=== PATIENT | female | born 1945 | race Caucasian/White ===

== ENCOUNTER 2016-06-28 12:34 | Emergency (ER) | payer OTHER ==
--- NOTE | 2016-06-28 12:59 | ED EKG INTERP ---
EKG Interpretation - EKG Time of EKG reading by physician:: 12:57 EKG Read and Signed by:: Roman Iverson EKG Interpretation (*Must complete 3 of following elements*): Abnormal Rate: 80 Rhythm: NSR QRS: other (left atrial enlargment) ST Wave: non-specific ST changes
[2016-06-28 13:19] LABS: MANUAL DIFF NEEDED? NO
[2016-06-28 13:25] LABS: BASO% 0.3 % (0.0-0.8); EOS# 0.15 X1000 (0.0-0.7); HEMATOCRIT 37.7 % (37.0-47.0); HEMOGLOBIN 12.8 g/dL (12.0-16.0); LYMPH# 0.93 X1000 (1.2-3.4); LYMPH% 12.7 % (20.5-51.1); MCH 32.5 PG (27-31); MCV 95.7 FL (81-99); MONO% 6.8 % (1.7-9.3); MPV 10.6 FL (7.4-10.4); NEUT% 78.2 % (42.2-75.2); PLT 224 X1000 (130-400); RBC 3.94 XMIL (4.2-5.4)
[2016-06-28 13:39] LABS: INR 0.92; PROTIME 9.4 Seconds (9.2-11.7); PTT 24.7 Seconds (22.0-36.0)
[2016-06-28 13:49] LABS: AGAP 13; ALBUMIN 3.5 g/dL (3.5-5.0); ALKALINE PHOSPHATASE 51 U/L (32-104); BUN 14 mg/dL (8-22); CALCIUM 8.8 mg/dL (8.8-10.2); CHLORIDE 100 mmol/L (98-107); CK PROFILE 129 U/L (24-173); COSMO 274; GOT 15 U/L (10-30); GPT 9 U/L (10-36); MAGNESIUM 1.7 mg/dL (1.5-2.7); POTASSIUM 4.1 mmol/L (3.5-5.1); SODIUM 135 mmol/L (136-145); TCO2 22 mmol/L (25-35); TOTAL BILIRUBIN 0.12 mg/dL (0.20-1.00); TOTAL PROTEIN 6.4 g/dL (6.3-8.3)
--- NOTE | 2016-06-28 14:20 | Diag Imaging Result Document ---
PROCEDURE NAME: CHEST-2 VIEWS - 06/28/2016 PA AND LATERAL RADIOGRAPH OF THE CHEST: COMPARISON: 03/20/2016. FINDINGS: There is evidence of prior granulomatous disease, stable. There is mild stable scarring at the lung apices. The lungs are grossly clear, otherwise. There is no definite pleural fluid collection. Cardiac silhouette and central vasculature are essentially unremarkable. There are stable CABG changes. IMPRESSION: Stable chest with no definite acute pathology.
--- NOTE | 2016-06-28 14:25 | EKG Report ---
Test Performed on : 06/28/2016 12:57:03 PM Test Reason : Chest Pain Blood Pressure : / mmHG Vent. Rate : 080 BPM Atrial Rate : 080 BPM P-R Int : 164 ms QRS Dur : 090 ms QT Int : 374 ms P-R-T Axes : 065 051 157 degrees QTc Int : 431 ms Normal sinus rhythm. Possible Left atrial enlargement ST & T wave abnormality, consider inferolateral ischemia Abnormal ECG When compared with ECG of 20-MAR-2016 17:14, No significant change was found Unconfirmed Result
--- NOTE | 2016-06-28 15:15 | PROVIDER DOCUMENTATION ---
HPI-Chest Pain - General Source: patient - History of Present Illness-CP Location: reports: other (L sided) Chest Pain Radiation: reports: no radiation Quality of Pain: reports: aching Severity in ED: mild Onset/Duration: just prior to arrival Timing: still present Context/Activities at Onset: reports: light activity Modifying Factors: worse with: other (talking causes pt to become more sob) Associated Symptoms: reports: shortness of breath. denies: nausea, vomiting Nitro Today/Relief: provided at home, no relief Aspirin Treatment Today: provided at home Prior Chest Pain/Cardiac Workup: reports: other (bypass in 2001) Similar Symptoms Previously?: No Recently Seen Here or By Another Healthcare Provider: No <Bisi Deal - Last Filed: 06/28/16 17:12> <Roman Iverson - Last Filed: 06/28/16 17:20> - General Chief Complaint: Chest Pain Stated Complaint: CP Time Seen by Provider: 06/28/16 15:01 Allergies/Adverse Reactions: Patient Allergies Allergy/AdvReac Type Severity Reaction Status Date / Time Sulfa (Sulfonamide Allergy Intermediate ITCHING Verified 05/11/13 16:57 Antibiotics) methocarbamol [From Robaxin] Allergy Mild ITCHING Verified 05/11/13 16:57 Penicillins Allergy Mild ITCHING Verified 05/11/13 16:57 Home Medications: Home Medication List Medication Instructions Recorded Confirmed Last Taken Type Metoprolol [Lopressor] 25 mg PO DAILY 05/11/13 05/11/13 05/10/13 History Multivitamins/Minerals [Centrum 1 each PO DAILY 05/11/13 05/11/13 Unknown History Silver] [place]-3 Fatty Acids [Fish Oil] 300 mg PO 05/11/13 05/11/13 Unknown History PRAVAstatin [Pravachol] 40 mg PO QHS 05/11/13 05/11/13 05/10/13 History Potassium Chloride [Klor-Con M20] 40 meq PO 05/11/13 05/11/13 05/10/13 History Vit B12/Pyridoxine/Thiamine [Pv 1 each PO 05/11/13 05/11/13 05/10/13 History Neuro Bettina Tablet] Vit C/Ascorbate Ca/Ascorb Sod 500 mg PO 05/11/13 05/11/13 05/10/13 History [Vitamin C 500 mg/15 ml Liquid] Vit D3-Vit K/Berberine/Hops 1 each PO 05/11/13 05/11/13 Unknown History [Ostera Tablet] Vit E Acetate/Gly/Dimeth/Water 400 ml TP 05/11/13 05/11/13 05/10/13 History [Eucerin Daily Replenishing Lot] Clopidogrel Bisulfate [Plavix] 75 mg PO DAILY 03/20/16 03/20/16 Unknown History Azithromycin 250 mg PO DAILY #6 tablet 06/28/16 Unknown Rx - History of Present Illness-CP Nature of Presenting Problem: 71 y/o F presents to ED cc of chest pain. Pt states she had left sided chest pain start around 1530pm yesterday and got worse over night waking pt up at 0400 this am and has had no relief from nitro or aspirin. Pt states the pain is constant. Pt is alert and oriented. Pt does report having some SOB when talking. Pt rates pain 8/10. Denies any edema/leg pain. (Bisi Deal) Review of Systems - Adult - REVIEW OF SYSTEMS - ADULT Constitutional: denies: chills, fever Ears, Nose, Mouth & Throat: denies: ear pain, throat pain Cardiovascular: reports: chest pain (left sided). denies: palpitations Respiratory: reports: shortness of breath. denies: cough (cough is still the same, denies any change) Gastrointestinal: denies: nausea, rectal bleeding, vomiting Genitourinary: denies: dysuria, discharge Musculoskeletal: denies: bone pain, back pain Neurological: denies: dizziness/vertigo, headache/migraines <Bisi Deal - Last Filed: 06/28/16 17:12> Past History - Adult - PAST MEDICAL HISTORY-ADULT Review of Records: reports: Old Records Reviewed, Nursing Assessment Review Major Childhood Illnesses: reports: denies history Cardiovascular: reports: CAD, heart valve problem (aortic stenosis , with valve replacement), hyperlipidemia Respiratory: reports: COPD Genitourinary: reports: kidney disease (renal stenosis) Endocrine/Immune: reports: Diabetes - PRIOR SURGERIES/PROCEDURES Surgical/Procedure History: reports: hysterectomy, orthopedic (extremity) ( arthoscopy), other (heart valve replacement(aortic), stent to renal artery) - IMMUNIZATION STATUS Childhood Immunizations: See Nurse Assessment Flu Vaccine: See Nurse Assessment - FAMILY HISTORY Family History: reviewed, not pertinent - SOCIAL HISTORY Smoking: greater than 1 pack/day Provider spent 3-5 mins advising pt. on dangers of tobacco.: Discussed manners to quit use, and f/u contacts for add'l counseling. Substance Use: denies <Bisi Deal - Last Filed: 06/28/16 17:12> Physical Exam-General - PHYSICAL EXAM-ADULT Initial Vital Signs Reviewed: Yes - CONSTITUTIONAL General Appearance: appears well, alert, no apparent distress - EYES Eyes: PERRL/EOMI, pink conjunctivae - HEAD, EARS, NOSE, MOUTH & THROAT HENMT: moist mucous membranes - NECK Neck: non-tender, full range of motion, supple - RESPIRATORY Respiratory: chest non-tender, lungs clear, normal breath sounds - CARDIOVASCULAR Cardiovascular: normal peripheral pulses, regular rate, rhythm, no edema - GASTROINTESTINAL (ABDOMEN) Abdominal Exam: normal bowel sounds, non tender, soft - MUSCULOSKELETAL Back Exam: normal inspection, other (chronic back pain) Extremity: normal range of motion, non-tender, normal gait, normal inspection, no pedal edema, no calf tenderness - SKIN Integumentary: normal color, normal turgor, warm/dry - NEUROLOGIC Neurologic: grossly normal, no motor/sensory deficits - PSYCHIATRIC Psych/Mental Status: normal mood/affect, normal thought content, normal thought process, oriented x 3 <Bisi Deal - Last Filed: 06/28/16 17:12> Progress - REASSESSMENT Reassessment #1 Time Reassessed: 16:35 Status: unchanged (pt denies taking lasix/ put still has pain on the L side with no relief.) - XRAY 1 XRAY: Bilateral XRAY Study: Chest Impression: Normal XRAY Interpretation: stable chest- Dr. aguirre (radiologist) - CT/MRI 1 CT Study: Angiogram Impression: Abnormal (NO PE. DARYL PNEUMIONIA. CHRONIC BRONCHITIS. CARDIOMEGALY) CT Results: SEE IMPRESSION- (radiologist) <Bisi Deal - Last Filed: 06/28/16 17:12> <Roman Iverson - Last Filed: 06/28/16 17:20> - PLAN OF CARE/RESULTS Progress/Plan/Lab Results: PLAN: LABS, CHEST XRAY PT AND PT FAMILY VERBALLY UNDERSTANDS PLAN OF CARE Laboratory Tests 06/28/16 06/28/16 06/28/16 13:00 13:00 13:00 WBC 7.35 RBC 3.94 L Hgb 12.8 Hct 37.7 MCV 95.7 MCH 32.5 H MCHC 34.0 RDW Std Deviation 13.6 Plt Count 224 MPV 10.6 H Immature Gran % (Auto) 0.0 Neut % (Auto) 78.2 H Lymph % (Auto) 12.7 L Williamson % (Auto) 6.8 Eos % (Auto) 2.0 Baso % (Auto) 0.3 Immature Gran # (Auto) 0.00 Neut # (Auto) 5.75 Lymph # (Auto) 0.93 L Williamson # (Auto) 0.50 Eos # (Auto) 0.15 Baso # (Auto) 0.02 PT INR PTT (Actin FS) D-Dimer 0.62 H Sodium 135 L Potassium 4.1 Chloride 100 Carbon Dioxide 22 L Anion Gap 13 BUN 14 Creatinine 0.6 Estimated GFR/1.73 m2 > 60 BUN/Creatinine Ratio 23 Glucose 157 H Calculated Osmolality 274 Calcium 8.8 Magnesium 1.7 Total Bilirubin 0.12 L AST 15 ALT 9 L Alkaline Phosphatase 51 Creatine Kinase 129 Troponin T Dqm-P-Vqhzmezottq Pept Total Protein 6.4 Albumin 3.5 Globulin 2.9 Albumin/Globulin Ratio 1.2 06/28/16 06/28/16 06/28/16 13:00 13:00 13:00 WBC RBC Hgb Hct MCV MCH MCHC RDW Std Deviation Plt Count MPV Immature Gran % (Auto) Neut % (Auto) Lymph % (Auto) Williamson % (Auto) Eos % (Auto) Baso % (Auto) Immature Gran # (Auto) Neut # (Auto) Lymph # (Auto) Williamson # (Auto) Eos # (Auto) Baso # (Auto) PT 9.4 INR 0.92 PTT (Actin FS) 24.7 D-Dimer Sodium Potassium Chloride Carbon Dioxide Anion Gap BUN Creatinine Estimated GFR/1.73 m2 BUN/Creatinine Ratio Glucose Calculated Osmolality Calcium Magnesium Total Bilirubin AST ALT Alkaline Phosphatase Creatine Kinase Troponin T < 0.010 Xtn-[id number]-Pzsklcrdmlu Pept 2679 H Total Protein Albumin Globulin Albumin/Globulin Ratio Orders Category Date Time Status ANGIOGRAM/PULMONARY ARTERIES [CT] Stat Exams 06/28/16 15:11 Taken CHEST-2 VIEWS [RAD] Stat Exams 06/28/16 12:43 Draft CBC WITH ELECTRONIC DIFF [HEME] Stat Lab 06/28/16 13:00 Completed CK PROFILE [SP CHEM] Stat Lab 06/28/16 13:00 Completed COMPREHENSIVE METABOLIC PANEL [CHEM] Stat Lab 06/28/16 13:00 Completed D-DIMER [CHEM] Stat Lab 06/28/16 13:00 Completed MAGNESIUM [CHEM] Stat Lab 06/28/16 13:00 Completed PRO B-NATRIURETIC PEPTIDE Stat Lab 06/28/16 13:00 Completed PROTIME WITH INR [COAG] Stat Lab 06/28/16 13:00 Completed PTT [COAG] Stat Lab 06/28/16 13:00 Completed TROPONIN T Stat Lab 06/28/16 13:00 Completed EKG [EKG] Stat Ther 06/28/16 12:43 Draft Vital Signs - 24 hr 06/28/16 06/28/16 12:39 14:42 Temperature 97.4 F L Pulse Rate 82 78 Respiratory 18 29 H Rate Blood Pressure 130/75 148/74 O2 Sat by Pulse 98 98 Oximetry (Bisi Deal) Departure <Bisi Deal - Last Filed: 06/28/16 17:12> - Departure Time of Disposition Order: 17:15 Certified Medical Emergency: Emergent <Roman Iverson - Last Filed: 06/28/16 17:20> - Departure DIAGNOSIS: Pneumonia Qualifiers: Pneumonia type: due to Mycoplasma pneumoniae Laterality: left Disposition: HOME 01 Condition: Stable Additional Instructions: ED Follow Up Instructions: You have been treated by a care provider in the Emergency Department. These instructions are being provided to you so you can have an understanding of how to care for yourself upon discharge. Upon discharge from the Emergency Department, you are responsible for making arrangements for follow-up care by a physician of your choice. Take all prescribed medications as directed. Return to the Emergency Department immediately for any new or worsening symptoms. You may call the Physician Referral phone number at [phone] to obtain a list of Physicians who are taking new patients. Prescriptions: Azithromycin 250 mg PO DAILY #6 tablet Referrals: Tim Jensen MD [Primary Care Provider] - Attestation - Scribe Verification/Attestation Scribe:: Bisi Deal Acting as Scribe for:: Roman Iverson Scribe documention review:: This chart was documented by a scribe and accurately reflects the service the provider performed and the decisions made by the provider. <Bisi Deal - Last Filed: 06/28/16 17:12> Physician Attestation
--- NOTE | 2016-06-28 17:14 | Diag Imaging Result Document ---
PROCEDURE NAME: ANGIOGRAM/PULMONARY ARTERIES - 06/28/2016 CT PULMONARY ANGIOGRAM WITH INTRAVENOUS CONTRAST: A CT dose reduction protocol was used. COMPARISON: 06/11/15. FINDINGS: Axial CT images of the chest were obtained after administering intravenous contrast. Coronal MIP images were generated. There is no pulmonary embolism. Stable cardiomegaly. The left lower lobe infiltrate has essentially resolved. There is some new infiltrate in the lingula. There is chronic bronchitis and mucus plugging of airways. Stable large left adrenal nodule. Degenerative changes of the spine. No acute or destructive bony lesions. IMPRESSION: 1. Negative for pulmonary embolism. 2. Left upper lobe pneumonia. 3. Cardiomegaly. [facility]
[2016-06-28] MEDS ORDERED: ROCEPHIN 1 GM/NS 50 ML IV ONE (17:20)
[2016-06-28 18:34] VITALS: BP 132/68
== END 2016-06-28 18:30 | disposition home or self-care (01) ==
LOC: ED 12:34
DX: J15.7 Pneumonia due to Mycoplasma pneumoniae (principal); R07.9 Chest pain, unspecified; R06.02 Shortness of breath; I25.10 Atherosclerotic heart disease of native coronary artery without angina pectoris; E78.5 Hyperlipidemia, unspecified; J44.9 Chronic obstructive pulmonary disease, unspecified; E11.9 Type 2 diabetes mellitus without complications; Z95.2 Presence of prosthetic heart valve; Z79.899 Other long term (current) drug therapy; I70.1 Atherosclerosis of renal artery; F17.210 Nicotine dependence, cigarettes, uncomplicated; Z71.6 Tobacco abuse counseling; I77.1 Stricture of artery; G89.29 Other chronic pain; I51.7 Cardiomegaly; Z79.02 Long term (current) use of antithrombotics/antiplatelets
CPT/HCPCS: 71020; 71275; 80053; 82550; 83735; 83880; 84484; 85025; 85379; 85610; 85730; 87040; 93005; J0696; Q9967

== ENCOUNTER 2016-12-07 06:05 | Inpatient (IN) ==
[2016-12-07] MEDS ORDERED: NS 1,000 ML IV ONE (06:15)
[2016-12-07] MEDS ORDERED: ZOFRAN IV ONE (06:15)
[2016-12-07 06:30] LABS: MANUAL DIFF NEEDED? NO
[2016-12-07 06:38] LABS: BASO% 0.1 % (0.0-0.8); EOS# 0.04 X1000 (0.0-0.7); EOS% 0.3 % (0.0-10.0); HEMATOCRIT 26.4 % (37.0-47.0); HEMOGLOBIN 8.5 g/dL (12.0-16.0); IMM GRAN# 0.16 X1000 (0.0-0.04); IMM GRAN% 1.1 % (0.0-0.5); LYMPH# 2.85 X1000 (1.2-3.4); LYMPH% 20.1 % (20.5-51.1); MCH 31.7 PG (27-31); MCHC 32.2 g/dL (33-37); MCV 98.5 FL (81-99); MONO# 1.48 X1000 (0.11-0.59); MONO% 10.4 % (1.7-9.3); PLT 326 X1000 (130-400); RBC 2.68 XMIL (4.2-5.4)
[2016-12-07 06:45] LABS: PROTIME 10.5 Seconds (9.2-11.7); PTT 21.2 Seconds (22.0-36.0)
[2016-12-07 07:06] LABS: AGAP 15; ALBUMIN 2.6 g/dL (3.5-5.0); ALKALINE PHOSPHATASE 36 U/L (32-104); BUN 59 mg/dL (8-22); CALCIUM 8.4 mg/dL (8.8-10.2); CHLORIDE 105 mmol/L (98-107); CK PROFILE 23 U/L (24-173); COSMO 300; GOT 10 U/L (10-30); GPT 10 U/L (10-36); MAGNESIUM 1.7 mg/dL (1.5-2.7); POTASSIUM 5.6 mmol/L (3.5-5.1); SODIUM 142 mmol/L (136-145); TCO2 22 mmol/L (25-35)
[2016-12-07 07:31] LABS: URINE MICRO REVIEW NEEDED? NO; URINE SOURCE CLEAN CATCH
[2016-12-07 07:35] LABS: BILIRUBIN URINE NEGATIVE (NEGATIVE); BLOOD URINE NEGATIVE (NEGATIVE); COLOR YELLOW; GLUCOSE URINE NEGATIVE (NEGATIVE); LEUKOCYTES URINE SMALL (NEGATIVE); NITRITE URINE NEGATIVE (NEGATIVE); PROTEIN URINE TRACE mg/dL (NEGATIVE); SP GRAVITY URINE 1.021; TURBIDITY URINE HAZY (CLEAR); UROBILINOGEN URINE NORMAL (NORMAL)
[2016-12-07 07:37] LABS: UR EPITHELIAL CELLS <10 /HPF (<10); URINE BACTERIA 4+ /HPF; URINE CULTURE NEEDED? YES; URINE RBC <10 /HPF (<10); URINE WBC <10 /HPF (<10)
[2016-12-07] MEDS ORDERED: SODIUM CHLORIDE 0.9% INJ ONE (08:07)
[2016-12-07] MEDS ORDERED: PHENERGAN IV ONE (08:07)
[2016-12-07] MEDS ORDERED: NORCO-7.5 PO ONE (08:07)
[2016-12-07] MEDS ORDERED: BOOSTRIX VACCINE IM ONE (08:15)
[2016-12-07] MEDS: NICODERM PATCH TD SCH (09:45)
[2016-12-07 10:14] LABS: RETIC% 2.11 % (0.8-2.1); RETIC-HE 31.4 PG (28.2-36.6)
[2016-12-07] MEDS ORDERED: NS 1,000 ML ONE (10:19)
[2016-12-07 10:20] LABS: IRON SATURATION 41 %; TIBC 197 ug/dL; TOTAL IRON 81 ug/dL (49-151); UNBOUND IRON 116 ug/dL (112-346)
[2016-12-07] MEDS: NS 1,000 ML IV SCH (10:45)
[2016-12-07] MEDS: ROCEPHIN 1 GM in NS 50 ML IV SCH (10:51)
[2016-12-07] MEDS: DUONEB (A & A) INH SCH (11:07)
[2016-12-07 11:32] LABS: HEMOGLOBIN A1C 5.6 % (4.8-6.0)
[2016-12-07] MEDS: PREDNISONE PO SCH (20:09)
[2016-12-07] MEDS ORDERED: ZOFRAN IV PRN (20:20)
[2016-12-07] MEDS: NORCO-5 PO PRN (20:31)
[2016-12-08] MEDS: NS 1,000 ML IV SCH (01:20)
[2016-12-08 06:54] LABS: HEMATOCRIT 22.9 % (37.0-47.0); HEMOGLOBIN 7.8 g/dL (12.0-16.0); MCH 32.9 PG (27-31); MCHC 34.1 g/dL (33-37); MCV 96.6 FL (81-99); MPV 10.3 FL (7.4-10.4); RBC 2.37 XMIL (4.2-5.4)
[2016-12-08 07:30] LABS: AGAP 12; BUN 40 mg/dL (8-22); CALCIUM 7.9 mg/dL (8.8-10.2); CHLORIDE 111 mmol/L (98-107); COSMO 295; POTASSIUM 4.5 mmol/L (3.5-5.1); SODIUM 143 mmol/L (136-145); TCO2 20 mmol/L (25-35)
[2016-12-08] MEDS ORDERED: DIPRIVAN 1% ONE (08:04)
[2016-12-08] MEDS: PREDNISONE PO SCH ×2 (09:32→20:01)
[2016-12-08] MEDS: ROCEPHIN 1 GM in NS 50 ML IV SCH (09:32)
[2016-12-08] MEDS: NICODERM PATCH TD SCH (09:32)
[2016-12-08] MEDS: NORCO-5 PO PRN ×3 (09:32→20:01)
[2016-12-08] MEDS: DUONEB (A & A) INH SCH ×5 (10:41→23:30)
[2016-12-08 12:33] LABS: HEMATOCRIT 22.5 % (37.0-47.0); HEMOGLOBIN 7.5 g/dL (12.0-16.0)
[2016-12-08] MEDS ORDERED: NS 250 ML ONE (15:01)
[2016-12-09] MEDS ORDERED: VANCOMYCIN IV PER PHARMACY MISC SCH (01:15)
[2016-12-09] MEDS ORDERED: VANCOMYCIN 1,200 MG in NS 250 ML IV ONE (02:00)
[2016-12-09] MEDS: DUONEB (A & A) INH SCH ×6 (02:59→23:13)
[2016-12-09] MEDS: PROTONIX PO SCH (06:04)
[2016-12-09 07:11] LABS: HEMATOCRIT 28.3 % (37.0-47.0); HEMOGLOBIN 9.6 g/dL (12.0-16.0); MCH 31.7 PG (27-31); MCHC 33.9 g/dL (33-37); MCV 93.4 FL (81-99); MPV 10.4 FL (7.4-10.4); RBC 3.03 XMIL (4.2-5.4)
[2016-12-09 07:22] LABS: AGAP 11; BUN 20 mg/dL (8-22); CHLORIDE 109 mmol/L (98-107); COSMO 285; SODIUM 142 mmol/L (136-145); TCO2 22 mmol/L (25-35)
[2016-12-09] MEDS: NORCO-5 PO PRN ×3 (09:24→21:16)
[2016-12-09] MEDS: KEFLEX PO SCH ×2 (09:24→21:16)
[2016-12-09] MEDS: NICODERM PATCH TD SCH (09:25)
[2016-12-09] MEDS: PREDNISONE PO SCH ×2 (09:25→21:16)
[2016-12-10] MEDS: DUONEB (A & A) INH SCH ×6 (03:40→23:11)
[2016-12-10] MEDS: PROTONIX PO SCH (06:36)
[2016-12-10 06:42] LABS: HEMATOCRIT 28.6 % (37.0-47.0); HEMOGLOBIN 9.3 g/dL (12.0-16.0); MCH 30.5 PG (27-31); MCHC 32.5 g/dL (33-37); MCV 93.8 FL (81-99); MPV 10.4 FL (7.4-10.4); RBC 3.05 XMIL (4.2-5.4)
[2016-12-10 06:57] LABS: AGAP 12; BUN 14 mg/dL (8-22); CALCIUM 8.8 mg/dL (8.8-10.2); CHLORIDE 107 mmol/L (98-107); COSMO 286; POTASSIUM 4.5 mmol/L (3.5-5.1); SODIUM 143 mmol/L (136-145); TCO2 24 mmol/L (25-35)
[2016-12-10] MEDS: NICODERM PATCH TD SCH (10:00)
[2016-12-10] MEDS: KEFLEX PO SCH ×2 (10:01→21:36)
[2016-12-10] MEDS: PREDNISONE PO SCH ×2 (10:01→21:36)
[2016-12-10] MEDS: NORCO-5 PO PRN ×2 (10:06→19:40)
[2016-12-10] MEDS ORDERED: VANCOMYCIN IV PER PHARMACY MISC SCH (11:15)
[2016-12-10] MEDS ORDERED: VANCOMYCIN 1.2 GM in NS 250 ML IV ONE (13:00)
[2016-12-10] MEDS ORDERED: VANCOMYCIN 1 GM/NS 1 GM/250 ML IVPB IV SCH (14:00)
[2016-12-10] MEDS: VANCOMYCIN 1 GM/NS 1 GM/250 ML IVPB IV SCH (15:41)
[2016-12-11] MEDS: DUONEB (A & A) INH SCH ×6 (03:40→23:08)
[2016-12-11] MEDS: PROTONIX PO SCH (06:07)
[2016-12-11 06:36] LABS: MANUAL DIFF NEEDED? NO
[2016-12-11 06:42] LABS: BASO% 0.1 % (0.0-0.8); EOS# 0.11 X1000 (0.0-0.7); EOS% 1.2 % (0.0-10.0); HEMATOCRIT 36.1 % (37.0-47.0); IMM GRAN# 0.14 X1000 (0.0-0.04); IMM GRAN% 1.6 % (0.0-0.5); LYMPH# 1.28 X1000 (1.2-3.4); LYMPH% 14.3 % (20.5-51.1); MCH 31.1 PG (27-31); MCHC 33.2 g/dL (33-37); MCV 93.5 FL (81-99); MONO# 0.73 X1000 (0.11-0.59); MONO% 8.2 % (1.7-9.3); MPV 11.3 FL (7.4-10.4); NEUT% 74.6 % (42.2-75.2); PLT 110 X1000 (130-400); RBC 3.86 XMIL (4.2-5.4)
[2016-12-11 07:19] LABS: AGAP 14; BUN 16 mg/dL (8-22); CALCIUM 8.7 mg/dL (8.8-10.2); CHLORIDE 103 mmol/L (98-107); COSMO 282; POTASSIUM 4.9 mmol/L (3.5-5.1); SODIUM 140 mmol/L (136-145); TCO2 23 mmol/L (25-35)
[2016-12-11] MEDS: PREDNISONE PO SCH ×3 (09:08→20:08)
[2016-12-11] MEDS: KEFLEX PO SCH ×3 (09:08→20:08)
[2016-12-11] MEDS: NICODERM PATCH TD SCH (09:08)
[2016-12-11] MEDS: NORCO-5 PO PRN ×2 (10:09→21:16)
[2016-12-11] MEDS ORDERED: LACTULOSE PO ONE (10:41)
[2016-12-11] MEDS: MIRALAX PO SCH ×3 (12:33→20:08)
[2016-12-11] MEDS: DULCOLAX PR SCH ×2 (19:49→20:08)
[2016-12-12] MEDS ORDERED: VANCOMYCIN 1 GM/NS 1 GM/250 ML IVPB IV SCH (01:00)
[2016-12-12] MEDS: DUONEB (A & A) INH SCH ×5 (03:20→19:50)
[2016-12-12] MEDS: VANCOMYCIN 1 GM/NS 1 GM/250 ML IVPB IV SCH (04:39)
[2016-12-12] MEDS: PROTONIX PO SCH (06:19)
[2016-12-12 06:44] LABS: AGAP 12; BUN 21 mg/dL (8-22); CHLORIDE 103 mmol/L (98-107); COSMO 283; POTASSIUM 4.4 mmol/L (3.5-5.1); SODIUM 140 mmol/L (136-145); TCO2 25 mmol/L (25-35)
[2016-12-12 06:46] LABS: HEMATOCRIT 31.6 % (37.0-47.0); HEMOGLOBIN 10.2 g/dL (12.0-16.0); MCH 30.7 PG (27-31); MCHC 32.3 g/dL (33-37); MCV 95.2 FL (81-99); MPV 10.8 FL (7.4-10.4); RBC 3.32 XMIL (4.2-5.4)
[2016-12-12] MEDS: KEFLEX PO SCH ×2 (08:11→20:11)
[2016-12-12] MEDS: PREDNISONE PO SCH ×2 (08:11→20:11)
[2016-12-12] MEDS: MIRALAX PO SCH ×2 (08:11→20:12)
[2016-12-12] MEDS: NICODERM PATCH TD SCH (08:11)
[2016-12-12] MEDS: NORCO-5 PO PRN (11:19)
[2016-12-12] MEDS ORDERED: FLEET MINERAL OIL ENEMA PR ONE (17:30)
[2016-12-12] MEDS ORDERED: KAYEXALATE PO ONE (17:31)
[2016-12-12] MEDS: DULCOLAX PR SCH (20:12)
[2016-12-13] MEDS: DUONEB (A & A) INH SCH ×7 (00:02→22:50)
[2016-12-13] MEDS: PROTONIX PO SCH (06:17)
[2016-12-13 07:00] LABS: HEMATOCRIT 32.7 % (37.0-47.0); HEMOGLOBIN 10.7 g/dL (12.0-16.0); MCH 31.8 PG (27-31); MCHC 32.7 g/dL (33-37); MCV 97.3 FL (81-99); MPV 11.4 FL (7.4-10.4); RBC 3.36 XMIL (4.2-5.4)
[2016-12-13 07:05] LABS: AGAP 11; BUN 22 mg/dL (8-22); CALCIUM 8.5 mg/dL (8.8-10.2); CHLORIDE 103 mmol/L (98-107); COSMO 281; POTASSIUM 4.3 mmol/L (3.5-5.1); SODIUM 139 mmol/L (136-145); TCO2 25 mmol/L (25-35)
[2016-12-13] MEDS ORDERED: RIFAMPIN PO SCH (09:00)
[2016-12-13] MEDS ORDERED: GENTAMICIN IV PER PHARMACY MISC SCH (09:00)
[2016-12-13] MEDS: KEFLEX PO SCH ×2 (10:34→18:19)
[2016-12-13] MEDS: NICODERM PATCH TD SCH (10:35)
[2016-12-13] MEDS: RIFAMPIN PO SCH ×2 (10:35→18:19)
[2016-12-13] MEDS: MIRALAX PO SCH ×2 (10:35→22:07)
[2016-12-13] MEDS: PREDNISONE PO SCH ×2 (10:35→22:07)
[2016-12-13] MEDS: NORCO-5 PO PRN ×3 (10:41→23:23)
[2016-12-13] MEDS: CUBICIN 500 MG in NS 100 ML IV SCH (11:35)
[2016-12-13] MEDS: GENTAMICIN 120 MG in NS 100 ML IV SCH (12:10)
[2016-12-13] MEDS ORDERED: GOLYTELY PO ONE (12:20)
[2016-12-13] MEDS ORDERED: XYLOCAINE 1% INJ ONE (19:58)
[2016-12-13] MEDS: DULCOLAX PR SCH (20:47)
[2016-12-13] MEDS: MORPHINE IV PRN (22:08)
[2016-12-14] MEDS: DUONEB (A & A) INH SCH ×6 (03:30→23:10)
[2016-12-14] MEDS: RIFAMPIN PO SCH ×3 (05:06→17:26)
[2016-12-14] MEDS: KEFLEX PO SCH ×3 (05:06→17:26)
[2016-12-14 06:12] LABS: HEMATOCRIT 31.3 % (37.0-47.0); HEMOGLOBIN 10.2 g/dL (12.0-16.0); MCH 31.8 PG (27-31); MCHC 32.6 g/dL (33-37); MCV 97.5 FL (81-99); MPV 10.2 FL (7.4-10.4); RBC 3.21 XMIL (4.2-5.4)
[2016-12-14] MEDS: PROTONIX PO SCH (06:25)
[2016-12-14 06:35] LABS: AGAP 14; BUN 21 mg/dL (8-22); CALCIUM 8.9 mg/dL (8.8-10.2); CHLORIDE 103 mmol/L (98-107); COSMO 285; POTASSIUM 4.3 mmol/L (3.5-5.1); SODIUM 141 mmol/L (136-145); TCO2 24 mmol/L (25-35)
[2016-12-14] MEDS: NICODERM PATCH TD SCH (09:08)
[2016-12-14] MEDS: MIRALAX PO SCH ×2 (09:08→20:44)
[2016-12-14] MEDS: PREDNISONE PO SCH ×2 (09:08→20:35)
[2016-12-14] MEDS ORDERED: DIPRIVAN 1% ONE (09:59)
[2016-12-14] MEDS ORDERED: FENTANYL ONE (09:59)
[2016-12-14] MEDS ORDERED: SENSORCAINE 0.5%-EPI 1:200,000 ONE (10:19)
[2016-12-14] MEDS ORDERED: XYLOCAINE 1% ONE (10:19)
[2016-12-14] MEDS: CUBICIN 500 MG in NS 100 ML IV SCH ×2 (10:24→12:49)
[2016-12-14] MEDS: NORCO-5 ONE (11:48)
[2016-12-14] MEDS: NORCO-5 PO PRN (11:51)
[2016-12-14] MEDS: GENTAMICIN 120 MG in NS 100 ML IV SCH (12:07)
[2016-12-14] MEDS: MORPHINE IV PRN ×4 (14:14→23:02)
[2016-12-14] MEDS ORDERED: NS 250 ML ONE (15:17)
[2016-12-14 18:02] LABS: INR 0.96
[2016-12-14] MEDS: DULCOLAX PR SCH (20:35)
[2016-12-15] MEDS: RIFAMPIN PO SCH ×4 (01:59→23:55)
[2016-12-15] MEDS: KEFLEX PO SCH ×4 (02:00→23:55)
[2016-12-15] MEDS: NORCO-5 PO PRN ×4 (02:03→21:32)
[2016-12-15] MEDS: DUONEB (A & A) INH SCH ×6 (03:49→22:52)
[2016-12-15] MEDS: PROTONIX PO SCH (06:20)
[2016-12-15 06:43] LABS: MANUAL DIFF NEEDED? NO
[2016-12-15 06:47] LABS: BASO% 0.2 % (0.0-0.8); EOS# 0.05 X1000 (0.0-0.7); EOS% 0.4 % (0.0-10.0); HEMATOCRIT 31.4 % (37.0-47.0); HEMOGLOBIN 10.2 g/dL (12.0-16.0); IMM GRAN# 0.06 X1000 (0.0-0.04); IMM GRAN% 0.5 % (0.0-0.5); LYMPH# 1.57 X1000 (1.2-3.4); MCH 31.4 PG (27-31); MCHC 32.5 g/dL (33-37); MCV 96.6 FL (81-99); MONO# 1.03 X1000 (0.11-0.59); MONO% 8.5 % (1.7-9.3); MPV 10.6 FL (7.4-10.4); NEUT% 77.4 % (42.2-75.2); PLT 309 X1000 (130-400); RBC 3.25 XMIL (4.2-5.4)
[2016-12-15 07:07] LABS: AGAP 11; BUN 17 mg/dL (8-22); CALCIUM 8.7 mg/dL (8.8-10.2); CHLORIDE 104 mmol/L (98-107); COSMO 280; POTASSIUM 4.2 mmol/L (3.5-5.1); SODIUM 140 mmol/L (136-145); TCO2 25 mmol/L (25-35)
[2016-12-15] MEDS: MIRALAX PO SCH ×2 (09:32→21:29)
[2016-12-15] MEDS: NICODERM PATCH TD SCH (09:32)
[2016-12-15] MEDS: PREDNISONE PO SCH ×2 (09:32→21:29)
[2016-12-15] MEDS: CUBICIN 500 MG in NS 100 ML IV SCH (10:45)
[2016-12-15] MEDS: GENTAMICIN 120 MG in NS 100 ML IV SCH (13:06)
[2016-12-15] MEDS: DULCOLAX PR SCH (21:29)
[2016-12-16] MEDS: DUONEB (A & A) INH SCH ×6 (03:31→23:20)
[2016-12-16] MEDS: PROTONIX PO SCH (07:56)
[2016-12-16] MEDS: RIFAMPIN PO SCH ×2 (07:56→16:15)
[2016-12-16] MEDS: KEFLEX PO SCH ×2 (07:57→16:15)
[2016-12-16] MEDS: NORCO-5 PO PRN ×3 (07:57→20:40)
[2016-12-16] MEDS: NICODERM PATCH TD SCH (08:00)
[2016-12-16] MEDS: PREDNISONE PO SCH ×2 (08:00→20:35)
[2016-12-16] MEDS: MIRALAX PO SCH ×2 (08:00→20:36)
[2016-12-16] MEDS: CUBICIN 500 MG in NS 100 ML IV SCH (10:26)
[2016-12-16] MEDS: GENTAMICIN IV SCH (13:07)
[2016-12-16] MEDS: NS IV SCH (13:07)
[2016-12-16] MEDS: DULCOLAX PR SCH (20:41)
[2016-12-17] MEDS: RIFAMPIN PO SCH ×2 (00:10→15:26)
[2016-12-17] MEDS: KEFLEX PO SCH ×3 (00:10→15:27)
[2016-12-17] MEDS: DUONEB (A & A) INH SCH ×7 (03:46→23:25)
[2016-12-17] MEDS: PROTONIX PO SCH (05:01)
[2016-12-17] MEDS: MIRALAX PO SCH ×2 (10:13→23:08)
[2016-12-17] MEDS: PREDNISONE PO SCH ×2 (10:13→23:09)
[2016-12-17] MEDS: NICODERM PATCH TD SCH (10:13)
[2016-12-17] MEDS: NORCO-5 ONE (10:30)
[2016-12-17] MEDS: CUBICIN 500 MG in NS 100 ML IV SCH (11:51)
[2016-12-17] MEDS: GENTAMICIN IV SCH (13:38)
[2016-12-17] MEDS: NS IV SCH (13:38)
[2016-12-17 17:56] LABS: MANUAL DIFF NEEDED? NO
[2016-12-17 18:03] LABS: BASO% 0.2 % (0.0-0.8); EOS# 0.05 X1000 (0.0-0.7); EOS% 0.4 % (0.0-10.0); HEMATOCRIT 32.3 % (37.0-47.0); HEMOGLOBIN 10.6 g/dL (12.0-16.0); IMM GRAN# 0.03 X1000 (0.0-0.04); IMM GRAN% 0.3 % (0.0-0.5); LYMPH# 1.58 X1000 (1.2-3.4); LYMPH% 13.9 % (20.5-51.1); MCH 31.6 PG (27-31); MCHC 32.8 g/dL (33-37); MCV 96.4 FL (81-99); MONO% 7.9 % (1.7-9.3); MPV 10.8 FL (7.4-10.4); NEUT% 77.3 % (42.2-75.2); PLT 291 X1000 (130-400); RBC 3.35 XMIL (4.2-5.4)
[2016-12-17 18:20] LABS: ALBUMIN 3.3 g/dL (3.5-5.0); POTASSIUM 3.7 mmol/L (3.5-5.1); TOTAL BILIRUBIN 0.4 mg/dL (0.20-1.00); TOTAL PROTEIN 6.1 g/dL (6.3-8.3)
[2016-12-17] MEDS: NORCO-5 PO PRN (18:46)
[2016-12-17] MEDS: DULCOLAX PR SCH (23:08)
[2016-12-18] MEDS: DUONEB (A & A) INH SCH ×4 (03:45→15:31)
[2016-12-18] MEDS: PROTONIX PO SCH (06:11)
[2016-12-18 08:22] VITALS: BP 160/64
[2016-12-18] MEDS ORDERED: RIFAMPIN PO SCH (09:00)
[2016-12-18] MEDS: PREDNISONE PO SCH (11:30)
[2016-12-18] MEDS: NICODERM PATCH TD SCH (11:35)
[2016-12-18] MEDS: CUBICIN 500 MG in NS 100 ML IV SCH (11:40)
[2016-12-18] MEDS: MIRALAX PO SCH (11:45)
[2016-12-18] MEDS: NORCO-5 PO PRN (15:21)
== END 2016-12-18 18:40 ==
LOC: ED 06:05 → 3N 11:55 → SUATTDRO 11:55 → 3N 12:29
PROVIDERS: ATTEND Internal Medicine